=== PATIENT | female | born 1950 | race Caucasian/White ===

== ENCOUNTER 2018-12-02 08:16 | Day surgery (SDC) | payer MEDICARE, BC ==
[~2018-12-02] VITALS: Ht 165.1 cm; Wt 71.8 kg
[~2018-12-02 08:16] MED LIST: DRY EYE PO; EPIN.3I IM; IBUP600 PO; Omeprazole20 M1 PO; PRAM.125 PO; Percocet 5-3251 EACH PO; SIMV40 PO; TAMS.4ER PO; Voltaren100 GM TOP
--- NOTE | 2018-12-02 08:42 | NUR ---
Ambulatory in Day Surgery History, Chart, Medications and Allergies reviewed before start of procedure.Lungs clear T/O to Auscultation. Patient confirms NPO status and agrees with scheduled surgery.
--- NOTE | 2018-12-02 12:46 | NUR ---
PT ARRIVED TO UNIT DENIES PAIN, N/V OR SOB. NO SENSATION IN LEGS FROM MIDTHIGH DOWN. VSS. DRESSING TO RLE CDI. POLAR PACK IN PLACE.
--- NOTE | 2018-12-02 15:47 | NUR ---
THERAPY IN TO SEE PT. STILL TOO NUMB TO WORK W/THERAPIST
--- NOTE | 2018-12-02 17:57 | NUR ---
SUMMARY PT S/P R TKA THIS SHIFT. VSS. PT RUNS YASMIN. PT HAS REPORTED MINIMAL PAIN, STATING CURRENTLY 1/10 ON PAIN SCALE. ABLE TO WIGGLE TOES, MOVE FEET AND LEGS. REPORTS SENSATION ALL THE WAY DOWN LEG. PT HAD N/V SHORTLY AFTER ARRIVING TO UNIT, MEDICATED PER ORDERS W/ZOFRAN. REPORTS NAUSEA HAS RESOLVED AND WAS ABLE TO EAT DINNER. REC'D TXA PER ORDERS. POLAR PACK IN PLACE. PT HAS NOT VOIDED SINCE ARRIVING TO UNIT. BS SHOWED 192 ML IN BLADDER. ABX INFUSING PER ORDERS. PT PLEASANT AND COOPERATIVE. CALL LIGHT IN REACH.
--- NOTE | 2018-12-02 21:46 | NUR ---
S/P RTKA. PT HAS BEEN UP AMBULATING IN [place], HAS FULL SENSATION TO EXTREM. HAS BEEN NAUSEATED OCCASIONALLY BUT NO EMESIS. PAIN IS TOLERABLE. DRESSING CDI. WILL CONT TO MANAGE PAIN T/O SHIFT AND FOLLOW TREATMENT PLAN. CALL LIGHT IN REACH.
--- NOTE | 2018-12-03 04:17 | NUR ---
POD 1 S/P RTKA. DID VERY WELL DURING NIGHT. PAIN IS MINIMAL BUT DOES HAVE OCCASIONAL NAUSEA NO VOMITING. HAS BEEN UP AMBULATING IN [place]. VOIDING WELL. DRESSING CDI WITH GOOD CIRC CHECKS. PLAN FOR DC HOME TODAY AFTER PT/OT.
[2018-12-03 04:24] LABS: BASOPHILS ABSOLUTE AUTO 0.01 K/mm3 (0.00-0.23); BASOPHILS PERCENT AUTO 0 % (0-2); EOSINOPHILS PERCENT AUTO 0 % (0-6); Hematocrit 36.2 % (33.0-51.0); Hemoglobin 12.2 g/dL (11.5-16.0); IMMATURE GRAN ABSOLUTE AUTO 0.07 K/mm3 (0.00-0.10); IMMATURE GRAN PERCENT AUTO 1 % (0-1); LYMPHOCYTES ABSOLUTE AUTO 1.28 K/mm3 (0.84-5.20); LYMPHOCYTES PERCENT AUTO 9 % (21-46); MONOCYTES ABSOLUTE AUTO 0.78 K/mm3 (0.16-1.47); MONOCYTES PERCENT AUTO 5 % (4-13); Mean Corpuscular HGB 30.3 pg (26.0-34.0); Mean Corpuscular HGB Conc 33.7 g/dL (31.5-36.5); Mean Corpuscular Volume 90 fL (80-100); Mean Platelet Volume 9.3 fL (9.1-12.4); NEUTROPHILS ABSOLUTE AUTO 12.56 K/mm3 (1.96-9.15); NEUTROPHILS PERCENT AUTO 85 % (41-73); Platelet Count 214 K/mm3 (150-400); RDW Coefficient Variation 12.2 % (11.7-14.2); RDW Standard Deviation 40.5 fL (35.1-46.3); Red Blood Cell Count 4.02 M/mm3 (3.80-5.20)
[2018-12-03 04:40] LABS: Anion Gap 7 mmol/L (6-16); Blood Urea Nitrogen 26 mg/dL (8-24); Bun/Creatinine Ratio 30.6 (12.0-20.0); CO2, Blood 26 mmol/L (21-32); Calcium, Blood 8.5 mg/dL (8.5-10.1); Chloride, Blood 106 mmol/L (98-108); Creatinine, Blood 0.85 mg/dL (0.40-1.00); Glomerular Filtration Rate >60 (60-); Glucose, Blood 125 mg/dL (70-99); Magnesium, Blood 1.8 mg/dL (1.6-2.4); Potassium, Blood 4.1 mmol/L (3.5-5.5); Sodium, Blood 139 mmol/L (136-145)
--- NOTE | 2018-12-03 06:50 | NUR ---
RECVD REPORT FROM PREVIOUS SHIFT RN LUCY, PT LYING IN BED, CALL LIGHT WITHIN REACH, BED RAILS UP X 2, BED IN LOWEST POSITION, CRYOTHERAPY IN PLACE
--- NOTE | 2018-12-03 07:25 | NUR ---
DR MAJOR ROUNDING ON PT
[2018-12-03] MEDS ORDERED: Percocet 5-3251 EACH PO (09:49)
--- NOTE | 2018-12-03 11:00 | NUR ---
pt provided with discharge teaching, printed materials, aquacel dressing. peripheral iv removed wnl. pt escorted to awaiting vehicle with belongings v ia wheelchair. prescriptions provided to pt's daughter for pickup
== END 2018-12-03 11:28 | disposition home or self-care (01) ==
LOC: ORSCMMR 08:16 → ORD 10:00 → SURS 12:31 → ORSCMMR 12-03 11:28
PROVIDERS: Orthopaedic Surgery
PROC: 0SRC0JA Replacement of Right Knee Joint with Synthetic Substitute, Uncemented, Open Approach (ICD-10-PCS; principal; 2018-12-02 10:00)
DX: M17.11 Unilateral primary osteoarthritis, right knee (principal); Z01.818 Encounter for other preprocedural examination; K21.9 Gastro-esophageal reflux disease without esophagitis; Z79.899 Other long term (current) drug therapy
CPT/HCPCS: 36415; 73560-RT; 80048; 83735; 85025; 86850; 86900; 86901; 88300; 97110; 97116; 97162; 97530; C1776; J0171; J0690; J0735; J1100; J1885; J2250; J2405; J2795; J3010; J7120